=== PATIENT | male | born 1975 | race Caucasian/White ===

== ENCOUNTER 2016-12-28 13:50 | Emergency (ER) | payer OTHER | END 2016-12-28 17:14 | disposition home or self-care (01) | LOC: FER 13:50 | DX: I10 Essential (primary) hypertension (principal); I45.10 Unspecified right bundle-branch block; E66.9 Obesity, unspecified; F17.200 Nicotine dependence, unspecified, uncomplicated | CPT/HCPCS: 93005; J2930 ==